=== PATIENT | male | born 1985 | race Caucasian/White ===

== ENCOUNTER 2025-07-27 12:46 | Emergency (ER) | payer OTHER ==
[~2025-07-27] VITALS: Ht 182.8 cm; Wt 129.3 kg
[2025-07-27] MEDS ORDERED: IBUPROFEN 800 MG TAB PO ONE (14:05)
== END 2025-07-27 14:28 | disposition home or self-care (01) ==
LOC: ED 12:46
DX: S09.90XA Unspecified injury of head, initial encounter (principal); W19.XXXA Unspecified fall, initial encounter; Y93.89 Activity, other specified; Y92.89 Other specified places as the place of occurrence of the external cause; Y99.8 Other external cause status